=== PATIENT | female | born 1960 | race Caucasian/White ===

== ENCOUNTER 2018-12-22 14:15 | Emergency (ER) | payer BC, MEDICARE ==
[2018-12-22] MEDS ORDERED: Morphine 2 MG/ML Syringe IVPUSH ONE (14:25)
[2018-12-22] MEDS ORDERED: Sodium Chloride 0.9% 500 ML IV STA (14:30)
[2018-12-22] MEDS ORDERED: diazePAM 5 MG/ML MDV ONE (14:40)
--- NOTE | 2018-12-22 15:01 | CR ---
DATE OF SERVICE: 12/22/2018 CLINICAL DATA: Pain. PELVIS AND LEFT HIP: The patient is status post bilateral total hip arthroplasty. The left hip prosthesis is dislocated. The femoral component is dislocated laterally and anteriorly with respect to the femoral component. No fractures. IMPRESSION: Left hip prosthesis dislocation. [id number] MTDD
--- NOTE | 2018-12-22 15:55 | CR ---
DATE OF SERVICE: 12/22/2018 CLINICAL DATA: Hip dislocation. LEFT HIP: A single, AP view was performed. The prior noted left hip prosthesis dislocation has been reduced and demonstrates normal articular alignment on this single view. Otherwise, unchanged. [id number] [facility]
--- NOTE | 2018-12-22 16:50 | EDM.PDOC ---
ED HPI GENERAL MEDICAL PROBLEM - General Chief Complaint: General Stated Complaint: left hip dislocated Time Seen by Provider: 12/22/18 14:20 Source of Information: Reports: Patient, Family History Limitations: Reports: No Limitations - History of Present Illness INITIAL COMMENTS - FREE TEXT/NARRATIVE: This is a 58yo F brought into the ER via EMS for left hip pain. She was fishing and twisted while pulling in a sturgeon and immediately fell into her husbands arms in severe pain. She feels her left hip has popped out. She has had one prior episode of this and went to another ER where they sedated her and tried 4 times prior to reducing her hip. She is in about 7/10 pain without movement. Onset: Sudden Duration: Minutes:, Constant Location: Reports: Pelvis, Lower Extremity, Left Quality: Reports: Throbbing Severity: Severe Improves with: Reports: None Worsens with: Reports: Movement Associated Symptoms: Reports: No Other Symptoms ED ROS GENERAL - Review of Systems Review Of Systems: ROS reveals no pertinent complaints other than HPI. ED EXAM, GENERAL - Physical Exam Exam: See Below Exam Limited By: No Limitations General Appearance: Alert, WD/WN, Mild Distress Eye Exam: Bilateral Eye: EOMI Ears: Normal External Exam Nose: Normal Inspection Throat/Mouth: Normal Inspection Head: Atraumatic, Normocephalic Neck: Normal Inspection, Supple Respiratory/Chest: No Respiratory Distress, Lungs Clear Cardiovascular: Normal Peripheral Pulses, Regular Rate, Rhythm Peripheral Pulses: 2+: Dorsalis Pedis (L), Dorsalis Pedis (R) GI/Abdominal: Normal Bowel Sounds Extremities: Other (left extremity appears shortened and externally rotated) Neurological: Alert, Oriented, CN II-XII Intact ED GENERAL MEDICAL PROCEDURES - Additional/Other Procedure(s) Other (Free Text) Procedure(s): Patient given 3mg IV morphine and 10mg IV valium for sedation. EMS present to assist the nurses and myself. Once patient became relaxed and sleepy we were able to apply slow traction with minimal internal rotation and reduce the left hip prosthesis without complications in one try. Patient states she felt her hip pop back in. No complications. Course - Vital Signs Last Recorded V/S: Last Vital Signs Temp 36.7 C 12/22/18 14:18 Pulse 74 12/22/18 15:15 Resp 18 12/22/18 15:15 BP 123/70 12/22/18 15:15 Pulse Ox 95 12/22/18 15:15 - Orders/Labs/Meds Meds: Medications Discontinued Medications Generic Name Dose Route Start Last Admin Trade Name Janeth PRSoraida Reason Stop Dose Admin Diazepam 5 mg 12/22/18 14:25 12/22/18 14:47 Valium IVPUSH 12/22/18 14:26 5 mg ONETIME ONE Administration Diazepam Confirm 12/22/18 14:40 12/22/18 15:02 Valium Administered 12/22/18 14:41 Not Given Dose 5 mg .ROUTE .STK-MED ONE Morphine Sulfate 3 mg 12/22/18 14:25 12/22/18 14:41 Morphine IVPUSH 12/22/18 14:26 3 mg ONETIME ONE Administration Morphine Sulfate Confirm 12/22/18 14:40 12/22/18 15:02 Morphine Administered 12/22/18 14:41 Not Given Dose 4 mg .ROUTE .STK-MED ONE Departure - Departure Time of Disposition: 16:00 Disposition: Home, Self-Care 01 Condition: Good Clinical Impression: Anterior dislocation of left hip Qualifiers: Encounter type: initial encounter Qualified Code(s): S73.035A - Other anterior dislocation of left hip, initial encounter - Discharge Information Instructions: Closed Reduction for Prosthetic Hip Joint Dislocation, Care After , Hip Dislocation, [id number] Referrals: PCP,Unknown [Primary Care Provider] - Forms: ED Department Discharge Additional Instructions: Discharge home. Follow up with your primary orthopedic as soon as possible. Limit activity due to ligaments being stretched and it could dislocate again easily. No turning, twisting of hip. No excessive bending of the hip. Return to the ER if you are having excessive pain. Call or return to the ER if you have any questions or concerns. - Problem List & Annotations (1) Anterior dislocation of left hip SNOMED Code(s): 629345489 Code(s): S73.035A - OTHER ANTERIOR DISLOCATION OF LEFT HIP, INITIAL ENCOUNTER Status: Acute Priority: High Current Visit: Yes Annotation/ Comment:: Dislocation of left hip prosthesis. Second dislocation of left hip replacement. Qualifiers: Encounter type: initial encounter Qualified Code(s): S73.035A - Other anterior dislocation of left hip, initial encounter - Problem List Review Problem List Initiated/Reviewed/Updated: Yes - Assessment/Plan Plan: Patient understands risks of using left hip and movement she should be avoiding. Patient to f/u with her Orthopedic surgeon. Counseled on pain management and patient has some home oxycodone. Patient to f/u as directed and as needed for further concerns. Patient states she is doing well and will comply with precautions and safety for the hip and f/u.
== END 2018-12-22 16:00 | disposition home or self-care (01) ==
LOC: LB.ED 14:15
DX: T84.021A Dislocation of internal left hip prosthesis, initial encounter (principal); X50.1XXA Overexertion from prolonged static or awkward postures, initial encounter; Y93.89 Activity, other specified
CPT/HCPCS: 27265; 73501; 73502; 96361; 96374; 96375; 99283; A0425; A0429; J2270; J3360; J7040